=== PATIENT | female | born 1960 | race Caucasian/White ===

== ENCOUNTER 2018-11-21 08:58 | Day surgery (SDC) | payer OTHER | END 2018-11-21 11:14 | disposition home or self-care (01) | LOC: JASU-ENDO 08:58 ==

== ENCOUNTER 2020-09-28 15:47 | Emergency (ER) | payer OTHER ==
[2020-09-28 16:12] VITALS: BP 127/87; PULSE 95; BMI 35.3
== END 2020-09-28 19:37 | disposition home or self-care (01) ==
LOC: JER 15:47
DX: J06.9 Acute upper respiratory infection, unspecified (principal); U07.1 COVID-19
CPT/HCPCS: 71046-TC-FY; 99284-25; C9803; U0003

== ENCOUNTER 2022-05-13 07:26 | Emergency (ER) | payer OTHER ==
[2022-05-13 07:44] VITALS: BP 131/83; PULSE 82; RESP 18; TEMP 98.2; BMI 36.0
== END 2022-05-13 09:12 | disposition home or self-care (01) ==
LOC: JERFT 07:26 → JER 07:26 → JERFT 09:12
DX: S93.402A Sprain of unspecified ligament of left ankle, initial encounter (principal); X50.9XXA Other and unspecified overexertion or strenuous movements or postures, initial encounter
CPT/HCPCS: 73610-TC-LT-FY; 73630-TC-LT; 99283-25

== ENCOUNTER 2023-05-14 12:34 | Emergency (ER) | payer OTHER ==
[2023-05-14 12:42] VITALS: BP 127/80; PULSE 91; RESP 16; TEMP 97.7; BMI 32.9
[2023-05-14] MEDS ORDERED: ACETAMINOPHEN 325 MG TABLET (FP) PO ONE (14:07)
[2023-05-14] MEDS ORDERED: ACETAMINOPHEN 325 MG TABLET (FP) ONE (14:28)
== END 2023-05-14 15:20 | disposition left against medical advice (07) ==
LOC: JERFT 12:34
DX: S92.502A Displaced unspecified fracture of left lesser toe(s), initial encounter for closed fracture (principal); W22.8XXA Striking against or struck by other objects, initial encounter
CPT/HCPCS: 73630-TC-LT; 99283-25